=== PATIENT | male | born 1985 | race Caucasian/White ===

== ENCOUNTER 2019-05-27 19:48 | Emergency (ER) | payer OTHER ==
[~2019-05-27] VITALS: Ht 182.9 cm; Wt 99.8 kg
[2019-05-27 20:11] VITALS: BP_SYST 147
[2019-05-27 21:35] LABS: BILIRUBIN,URINE NEGATIVE (NEGATIVE); CLARITY/URINE SL HAZY (CLEAR); COLOR,URINE YELLOW (YELLOW); GLUCOSE,URINE NEGATIVE (NEGATIVE); KETONES,URINE NEGATIVE (NEGATIVE); LEUKOCYTE ESTERASE ,URINE 1+ (NEGATIVE); NITRITE, URINE NEGATIVE (NEGATIVE); PH,URINE 7.5 (5.0-8.0); PROTEIN URINE NEGATIVE (NEGATIVE)
[2019-05-27 21:36] LABS: BLOOD, URINE TRACE (NEGATIVE)
[2019-05-27 21:46] LABS: BACTERIA,URINE FEW /HPF (None Seen); WBC,URINE 50-80 /HPF (0-3)
[2019-05-27 21:47] LABS: MUCUS,URINE None Seen /LPF (None Seen)
--- NOTE | 2019-05-28 00:14 | NUR ---
Pt called 3x, no answer
--- NOTE | 2019-05-28 00:14 | NUR ---
Patient left without being seen. No further treatment done. ER MD aware
[2019-05-30 02:10] LABS: CHLAMYDIA TRACHOMATIS NAA Negative (Negative); NEISSERIA GONORRHOEAE NAA Negative (Negative)
== END 2019-05-28 00:14 | disposition left against medical advice (07) ==
LOC: SED 19:48
DX: N48.89 Other specified disorders of penis (principal); Z53.21 Procedure and treatment not carried out due to patient leaving prior to being seen by health care provider
CPT/HCPCS: 81000-TC; 87086; 87491; 87591; 99281